=== PATIENT | female | born 1975 | race African-American/Black ===

== ENCOUNTER 2017-11-20 10:20 | Outpatient (CLI) | payer BC | END 2017-11-20 10:21 | disposition home or self-care (01) | LOC: BICMAMMO 10:20 | PROVIDERS: ATTEND Family Medicine | DX: Z12.31 Encounter for screening mammogram for malignant neoplasm of breast (principal) | CPT/HCPCS: 77063; 77067 ==

== ENCOUNTER 2020-06-28 13:19 | Outpatient (CLI) | payer BC ==
--- NOTE | 2020-06-28 15:03 | MMO ---
Bilateral MAMMO Bilat Screen [facility]. CLINICAL HISTORY: Patient is 45 years old and is seen for screening. The patient has the following family history of breast cancer: cousin female. The patient has no personal history of cancer. VIEWS: The views performed were: bilateral craniocaudal with tomosynthesis and bilateral mediolateral oblique with tomosynthesis. FILMS COMPARED: The present examination has been compared to a prior imaging study performed at [facility] on 11/20/2017. This study has been interpreted with the assistance of computer-aided detection. MAMMOGRAM FINDINGS: There are scattered fibroglandular densities. There are no suspicious masses, suspicious calcifications, or new areas of architectural distortion. IMPRESSION: THERE IS NO MAMMOGRAPHIC EVIDENCE OF MALIGNANCY. A ROUTINE FOLLOW-UP MAMMOGRAM IN 1 YEAR IS RECOMMENDED. THE RESULTS OF THIS EXAM WERE SENT TO THE PATIENT. ACR BI-RADS Category 1 - Negative MAMMOGRAPHY NOTE: 1. A negative mammogram report should not delay a biopsy if a dominant of clinically suspicious mass is present. 2. Approximately 10% to 15% of breast cancers are not detected by mammography. 3. Adenosis and dense breasts may obscure an underlying neoplasm. Reported by: BERNIE CHERRY MD Electonically Signed: [id number]
== END 2020-06-28 13:20 | disposition home or self-care (01) ==
LOC: BICMAMMO 13:19
PROVIDERS: ATTEND Family Medicine
DX: Z12.31 Encounter for screening mammogram for malignant neoplasm of breast (principal); Z80.3 Family history of malignant neoplasm of breast
CPT/HCPCS: 77063; 77067

== ENCOUNTER 2021-09-15 12:21 | Outpatient (CLI) | payer BC | END 2021-09-15 12:22 | disposition home or self-care (01) | LOC: BICMAMMO 12:21 | PROVIDERS: ATTEND Family Medicine | DX: Z12.31 Encounter for screening mammogram for malignant neoplasm of breast (principal); Z80.3 Family history of malignant neoplasm of breast | CPT/HCPCS: 77063; 77067 ==

== ENCOUNTER 2022-07-03 08:53 | Outpatient (CLI) | payer BC | END 2022-07-03 08:54 | disposition home or self-care (01) | LOC: SCSRAD 08:53 | PROVIDERS: ATTEND Family Medicine | DX: M25.561 Pain in right knee (principal); M17.11 Unilateral primary osteoarthritis, right knee ==